=== PATIENT | male | born 2005 | race Caucasian/White ===

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

== ENCOUNTER 2024-03-23 02:36 | Emergency (ER) | payer BC ==
[~2024-03-23] VITALS: Ht 175.3 cm; Wt 61.0 kg
[2024-03-23 02:47] VITALS: BP 152/101
[2024-03-23 03:01] VITALS: BP 133/75
[2024-03-23] MEDS ORDERED: SODIUM CHLORIDE 0.9% 1,000 ML IV STA (03:07)
[2024-03-23] MEDS ORDERED: PROMETHAZINE HCL 25 MG/ML AMP IV ONE (03:10)
[2024-03-23 03:20] LABS: BASO% 0.1 % (0-3); EOS% 0.1 % (0-8); HEMATOCRIT 43.5 % (39.0-50.0); IMMATURE GRANULOCYTES 0.1 % (0.0-5.0); LYMPH% 17.9 % (15-41); MEAN CELL VOLUME 86.7 fL CALC (80.0-100.0); MEAN CORPUSCULAR HGB 29.7 pG CALC (26.0-32.0); MEAN CORPUSCULAR HGB CONC 34.3 g/dL CAL (32.0-36.0); MONO% 5.6 % (2-13); NEUT# 10.65 thou/uL (1.82-7.42); NEUT% 76.2 % (42-76); RED BLOOD COUNT 5.02 mill/uL (4.70-6.10); RED CELL DISTRI WIDTH 12.6 % (11.5-15.5)
[2024-03-23 03:25] LABS: HEMOGLOBIN 14.9 g/dl (14.0-18.0)
[2024-03-23 03:27] LABS: ALBUMIN 4.9 g/dL (3.2-5.0); CREATININE 0.7 mg/dL (0.7-1.3); POTASSIUM 3.9 mmol/l (3.5-5.1); TOTAL PROTEIN 8.4 g/dL (6.3-8.2)
[2024-03-23 03:30] VITALS: BP 133/72
[2024-03-23 03:33] LABS: BILIRUBIN, TOTAL 0.7 mg/dL (0.2-1.3)
[2024-03-23 04:00] VITALS: BP 114/66
[2024-03-23 04:42] LABS: URINE BLOOD DIPSTICK Negative (NEGATIVE); URINE COLOR Yellow; URINE GLUCOSE - DIPSTICK Negative (NEGATIVE); URINE KETONE Trace mg/dL (NEGATIVE); URINE LEUK ESTERASE Negative (NEGATIVE); URINE NITRITE - DIPSTICK Negative (Negative); URINE PROTEIN - DIPSTICK 100 mg/dL (NEG-TRACE)
[2024-03-23 04:50] LABS: URINE BACTERIA FEW hpf; URINE EPITHELIAL CELLS FEW EPI/hpf (0-FEW); URINE MUCUS MODERATE hpf (NONE-FEW); URINE RBC 0-2 RBC/hpf (0-5)
[2024-03-23] MEDS ORDERED: PROMETHAZINE HY25 M1 PO (05:03)
[2024-03-23 05:14] VITALS: BP 114/68
== END 2024-03-23 05:14 | disposition home or self-care (01) | DRG 392 ==
LOC: ED 02:36
PROVIDERS: Family Medicine
DX: K52.9 Noninfective gastroenteritis and colitis, unspecified (principal)
CPT/HCPCS: J2550